=== PATIENT | female | born 1930 | race Caucasian/White ===

== ENCOUNTER 2017-12-23 14:23 | Observation (INO) | payer MEDICARE ==
[2017-12-23] MEDS ORDERED: Acetaminophen 325 MG TAB PO PRN (16:58)
[2017-12-23] MEDS ORDERED: PROVENTIL INHALER 6.7 G (200 INHALATIONS) INH PRN (17:05)
[2017-12-23 23:16] VITALS: BMI 20.4
--- NOTE | 2017-12-24 00:30 | HP ---
CHIEF COMPLAINT: Ataxia. HISTORY OF PRESENT ILLNESS: The patient is an 87-year-old female, who was originally seen in [facility]. The patient is in generally very good health with minimal medical issues. She states when she a wakened this morning, she got up and tried to ambulate and had some difficulty. She did not have wea kness per se, but her legs were not cooperating. This is particularly located on the left side. She got back in bed and when she is trying to get up again was completely unable to, so she called her s on who took her to [place]. The patient had some mild lateral visual issues on the left side as we ll that appears to be resolved. She had a CT scan done in [place] and at that time she was apparen tly noted to have some nystagmus. A CT scan was unremarkable. CT angiogram of head and neck was als o unremarkable. She was subsequently transferred to this facility. Of note, her labs there were gen erally unremarkable as well. The patient does believe she is getting some better throughout the day today, but has not even attempted to try to get up and walk around since this morning. Apparently, t he patient had an abnormal [id number] at the outside facility as well. Currently, she denies any o ther symptoms. REVIEW OF SYSTEMS: Ten-system review is negative except for those things mentioned in the history of present illness. PAST MEDICAL HISTORY: Notable for prior history of breast cancer, which was isolated and removed wit h the lumpectomy with negative lymph nodes. She was on hormone suppression therapy for 1 year. She also has a history of asthma and has an inhaler that she uses. States that it is generally well cont rolled and her symptoms have been stable for 40 years or better. The patient has a history of hyperl ipidemia. She reports her cholesterol routinely runs over 300. She also reports that she has had so me type of issue on her EKG where she has seen Cardiology. She believes Dr. Santiago is her cardiol ogist. She reports 3 prior heart catheterizations, all of which were unremarkable. PAST SURGICAL HISTORY: The patient had a right breast lumpectomy with lymph node dissection and then appendectomy at the age of 12. FAMILY HISTORY: Father had COPD. Her mother had Alzheimer's disease and lived to be . SOCIAL HISTORY: The patient is a nonsmoker, nondrinker. She is . Her surrogate decision dante er would be her son or her [id number], Sandra. She is a DNAR and requests only oxygen and analge danae should she arrest. MEDICATIONS: Albuterol. ALLERGIES: None. PHYSICAL EXAMINATION: VITAL SIGNS: Blood pressure 142/64, pulse of 60, respirations are 16. GENERAL APPEARANCE: Age appropriate female. She is awake, alert, oriented, pleasant, and cooperativ e. HEENT: PERRL. No OP lesions. NECK: Supple and symmetric. CARDIOVASCULAR: Regular rate and rhythm without murmurs, gallops or rubs. LUNGS: Clear to auscultation bilaterally with good chest wall expansion and air exchange. ABDOMEN: Soft, nontender, nondistended, positive bowel sounds, no masses, no organomegaly. EXTREMITIES: Warm and dry without edema. Good pulses. NEUROLOGIC: The patient appears to be fully intact cognitively. Cranial nerves appear to be intact. She does not appear to have any nystagmus at present. She has good peripheral strength throughout in upper and lower extremities x4 and her [id number]-kc-[id number] is unremarkable. LABORATORY DATA: Sodium 138, potassium 3.7, chloride 107, CO2 of 24, glucose 94, BUN 13, creatinine 0.7, magnesium 2, alkaline phosphatase 76, AST 15, ALT 11, albumin 3.4. Troponin less than 0.01. Wh ite count 5.3, hemoglobin 13.6, platelets 247. Urinalysis negative. IMPRESSION AND PLAN: 1. Acute onset of ataxia. The patient apparently had some other findings including nystagmus and ab normal cerebellar exam at the other facility. Those seemed to be resolved or improved at this time. We will keep the patient in observation. We will put her on telemetry, obtain an echocardiogram and an MRI of the head in the morning. We will ask physical therapy to see her, so that we can safely t ry to get her back up on her feet and moving and see if her deficits remain. If they do not, we can likely be discharged fairly soon. If so, may need to consider some type of rehabilitation for her. We will consider Neurology consult depending on her clinical course. 2. Asthma, stable. The patient has no evidence of wheezing at the moment, we will continue p.r.n. a lbuterol for her.
[2017-12-24 05:15] LABS: Cardiac Risk 5.2 (Less than 4.5)
--- NOTE | 2017-12-24 10:50 | PDOC.PN ---
- Subjective Encounter Start Date: 12/24/17 Encounter Start Time: 10:48 Feels ok. Thinks she may be walking a little bit better. Has been up to the bathroom with help this morning. - Objective Resuscitation Status: Resuscitation Status DNR:Do Not Resuscitate Vital Signs & Weight: Vital Signs (12 hours) Temp Pulse Resp BP Pulse Ox 12/24/17 07:49 98.0 F 60 16 167/70 H 95 12/24/17 04:00 97.9 F 69 18 147/75 H 94 L 12/24/17 00:00 98.1 F 65 18 143/72 H 96 Weight Weight 115 lb 6 oz I&O: 12/23/17 12/24/17 12/25/17 06:59 06:59 06:59 Intake Total 100 Balance 100 Phys Exam - Physical Examination Constitutional: NAD Respiratory: no wheezing, no rales, no rhonchi, clear to auscultation bilateral Cardiovascular: RRR, no significant murmur Gastrointestinal: soft, non-tender, no distention, positive bowel sounds Musculoskeletal: no edema Very mild Left foot weakness and hypoesthesia. Psychiatric: normal affect, A&O x 3 Dx/Plan (1) CVA (cerebral vascular accident) Code(s): I63.9 - CEREBRAL INFARCTION, UNSPECIFIED Status: Acute Comment: Persistent L foot weakness and hypoesthesia. MRI, Neuro consult, PT assessment pending. Echo pending. Had CT and CTA head and neck at outside facility that were negative. Continue ASA. Intolerant to lipid lowering agents. (2) Hyperlipidemia Code(s): E78.5 - HYPERLIPIDEMIA, UNSPECIFIED Status: Acute Comment: Intolerant to meds. All caused leg cramps. Has tried for 20 years to take various ones. - Plan * Discussed with CM.
--- NOTE | 2017-12-24 12:47 | MRI ---
BRAIN MRI WITHOUT CONTRAST: 12/24/2017 HISTORY: Bilateral leg weakness, left greater than right. COMPARISON: None. TECHNIQUE: Multiplanar, multisequence MR imaging of the brain obtained without contrast. FINDINGS: The diffusion-weighted imaging demonstrates no evidence for acute infarction. The axial gradient echo imaging demonstrates no evidence for intracranial hemorrhage. There are a few opacified mastoid air cells noted inferiorly bilaterally, left greater than right. Moderate diffuse cerebral volume loss is present, with associated prominence of the CSF containing sp aces. No intracranial hemorrhages noted on the gradient echo imaging. Regional bone marrow signal i ntensity appears grossly unremarkable. A few scattered foci of increased T2 and FLAIR signal noted within the white matter, suggesting mild small vessel disease. IMPRESSION: Moderate diffuse cerebral volume loss. No magnetic resonance evidence of intracranial hemorrhage or acute infarction. Mild small vessel disease. POS: [facility]
[2017-12-24 15:48] VITALS: TEMP 98.7
[2017-12-24 15:51] VITALS: BP 153/80
--- NOTE | 2017-12-24 17:08 | CON ---
DATE OF CONSULTATION: 12/24/2017 NEUROLOGY CONSULTATION CONSULTING PHYSICIAN: Hospitalist Service. IMPRESSION: Peripheral vertigo with a long history of similar, but less severe attacks. PLAN: The patient will be discharged home. HISTORY OF PRESENT ILLNESS: Ms. Pedroza is an 87-year-old woman who has had a history of peripheral v ertigo. She was going to a clinic routinely to have Nava maneuvers done to adjust her inner ear sys tem. She got up yesterday and noted that she was quite unsteady on her feet. She was a bit nauseous and dizzy as well. She decided to go into the hospital and have it checked out. She was subsequent ly transferred here. After CT and CTA were both done, nothing remarkable was found. She had an MRI done earlier today, which was unremarkable for any evidence of ischemia. Her workup otherwise has be en normal other than a cholesterol of 281. PAST MEDICAL HISTORY: Hyperlipidemia, questionable stroke. FAMILY HISTORY: Noncontributory. SOCIAL HISTORY: No tobacco or alcohol use. REVIEW OF SYSTEMS: No complaint of headache, nausea, trouble swallowing, lateralized weakness or num bness. PHYSICAL EXAMINATION: VITAL SIGNS: Blood pressure 179/81, pulse 63, respirations 16, temperature 98.3. HEENT: Pupils are equal. Conjunctivae are clear. Oropharynx clear. No nystagmus was present. NECK: No lymphadenopathy. EXTREMITIES: No cyanosis. NEUROLOGIC: She is alert and appropriate. Her speech is fluent and clear. Her exam is nonfocal. S he has some mild proximal weakness in both legs. She could walk independently today. SUMMARY: This is an elderly lady who had acute dizziness and unsteadiness without any evidence of is chemic injury on MRI. I suspect that this is continued peripheral vertigo problem that she has faced in the past. It is just a bit worse this time around. She will be discharged home for outpatient m anagement.
--- NOTE | 2017-12-25 13:53 | DIS ---
DATE OF ADMISSION: 12/23/2017 DATE OF DISCHARGE: 12/24/2017 DISCHARGE DIAGNOSES: 1. Acute onset ataxia. 2. History of asthma, stable. HISTORY: This patient is an 87-year-old female who presented via the emergency department. The chayito ent had awakened in the morning, tried to ambulate and had some difficulty. She felt off balance. S he got back in bed and tried again and had similar type symptoms. Subsequently, she felt like she ma y have had some slight visual issues on her left side as well as and she presented to the emergency d [facility] at [place] where she was thought to have some nystagmus and some abnormal heel to nguyen. They subsequently transferred the patient to our facility after she had a negative head CT. She was noted to have no abnormal heel to nguyen, but possibly some nystagmus in the emergency department alth ough that is chronic at the time of my initial exam. On my exam, patient was essentially normal. He r lab workup and EKGs were also unremarkable. HOSPITAL COURSE: The patient was admitted to the hospital on observation. She was maintained on tel emetry monitoring. She underwent an MRI brain which revealed moderate diffuse cerebral volume loss, but nothing acute. The patient was seen in consultation by Dr. Rosen who felt the patient's sympto ms were more likely related to peripheral vertigo. She also recently had cardiac evaluation when [facility] records were obtained. The patient felt like she was improved symptomatically, although felt like she would be more comfortable using a walker. Case management was consulted; however, the patient w as able to get access to a rolling walker. With that, patient was felt to be stable for discharge to home. PHYSICAL EXAMINATION: VITAL SIGNS: On day of discharge, temperature 98.7, pulse 70, respirations 16, O2 sat 98% on room ai r and BP 154/74. GENERAL APPEARANCE: Patient was awake, alert, oriented, pleasant, cooperative, no distress. HEART: Regular rate and rhythm without murmurs. LUNGS: Clear bilaterally. ABDOMEN: Soft, nontender and nondistended. Positive bowel sounds. No masses, no organomegaly. EXTREMITIES: Warm and dry with no edema. NEUROLOGIC: Patient appeared to be intact with no nystagmus. No significant gait disturbance and no focal motor deficits. DISPOSITION: The patient is discharged to home. She is to have a regular diet. Her activity level is ad mary lou. She will be on aspirin 81 mg per day and she will continue her usual home Ventolin, Lutei n, calcium, magnesium, biotin, and fish oil. She is to follow up with her PCP and she can follow up with Dr. Rosen, Neurology if she has any problems and requires such.
== END 2017-12-24 18:02 | disposition home or self-care (01) ==
LOC: ERS 14:23 → 2SE 16:59
PROVIDERS: ADMIT Internal Medicine; ATTEND Internal Medicine
DX: R27.0 Ataxia, unspecified (principal); J45.909 Unspecified asthma, uncomplicated; E78.5 Hyperlipidemia, unspecified; Z66 Do not resuscitate; Z79.899 Other long term (current) drug therapy
CPT/HCPCS: 70551; 80061; 97116; 99285; G0378 ×2; G8978; G8979; 36415